=== PATIENT | male | born 1945 | race Caucasian/White ===

== ENCOUNTER 2018-09-17 10:37 | Inpatient (IN) ==
[2018-09-17] MEDS ORDERED: DILAUDID IV ONE (11:18)
[2018-09-17] MEDS ORDERED: ZOFRAN IV ONE (11:18)
[2018-09-17 11:43] LABS: URINE SOURCE CLEAN CATCH
[2018-09-17 11:51] LABS: BILIRUBIN URINE NEGATIVE (NEGATIVE); BLOOD URINE NEGATIVE (NEGATIVE); COLOR YELLOW; GLUCOSE URINE NEGATIVE (NEGATIVE); KETONE URINE NEGATIVE (NEGATIVE); LEUKOCYTES URINE NEGATIVE (NEGATIVE); NITRITE URINE NEGATIVE (NEGATIVE); PROTEIN URINE NEGATIVE (NEGATIVE); TURBIDITY URINE CLEAR (CLEAR); UROBILINOGEN URINE NORMAL (NORMAL)
[2018-09-17 11:53] LABS: UR EPITHELIAL CELLS <10 /HPF (<10); URINE BACTERIA NEGATIVE /HPF; URINE RBC <10 /HPF (<10); URINE WBC <10 /HPF (<10)
[2018-09-17 12:22] LABS: BASO# 0.01 X1000 (0.0-0.2); BASO% 0.1 % (0.0-0.8); EOS# 0.02 X1000 (0.0-0.7); EOS% 0.2 % (0.0-10.0); HEMOGLOBIN 13.3 g/dL (14.0-18.0); IMM GRAN# 0.04 X1000 (0.0-0.04); IMM GRAN% 0.3 % (0.0-0.5); LYMPH# 1.08 X1000 (1.2-3.4); LYMPH% 8.3 % (20.5-51.1); MCH 29.8 PG (27-31); MCHC 34.1 g/dL (33-37); MCV 87.4 FL (81-99); MONO% 4.6 % (1.7-9.3); MPV 9.7 FL (7.4-10.4); NEUT# 11.25 X1000 (1.4-6.5); NEUT% 86.5 % (42.2-75.2); PLT 225 X1000 (130-400); RBC 4.46 XMIL (4.7-6.1); RDW 14.9 % (11.5-14.5)
[2018-09-17 12:26] LABS: ALB/GLOB RATIO 1.4; ALBUMIN 4.2 g/dL (3.5-5.0); CALCIUM 9.1 mg/dL (8.8-10.2); POTASSIUM 3.3 mmol/L (3.5-5.1); TOTAL BILIRUBIN 0.62 mg/dL (0.20-1.00); TOTAL PROTEIN 7.3 g/dL (6.3-8.3)
--- NOTE | 2018-09-17 13:04 | Diag Imaging Result Doc PS360 ---
EXAM: CHEST-1 VIEW 09/17/2018 HISTORY: cp TECHNIQUE: AP portable upright at 1241 COMMENT: There is cardiomegaly. There is increased pulmonary vascularity. The inspiration is less optimal than on 05/21/2018. Considering degree of inspiration there has been no significant change since 05/21/2018. IMPRESSION: Cardiomegaly. Electronically signed by Sam Jones 09/17/2018 1:01 PM
--- NOTE | 2018-09-17 13:19 | Diag Imaging Result Doc PS360 ---
EXAM: CT ABDOMEN/PELVIS W/O CONTRAST 09/17/2018 HISTORY: possible hernia TECHNIQUE: This exam was performed using automated exposure control, adjustment of mA or kV according to patient size, and/or use of iterative reconstruction technique. COMMENT: There is platelike opacity in the lung bases and some increased interstitial opacity in the costophrenic sulci. There is fibrosis or atelectasis in the inferior lingula. No previous studies are available for comparison. 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 There is no evidence of hydronephrosis. There is no evidence of nephrolithiasis. There has been cholecystectomy. There is what appears to be a seroma in the gallbladder fossa. Multiple renal cysts are present. This includes a 5 cm size cyst in the lower pole on the right. It is also partially calcified posteriorly. There is a cyst posteriorly in the mid right kidney which also contains a rim of calcium. The spleen is not enlarged. The pancreas is grossly normal considering the lack of contrast. There has been appendectomy. There are bilateral fat-containing inguinal hernias particularly on the right. There is thickening of the mucosa and extraluminal gas associated with a segment of the sigmoid colon anteriorly. There is stranding in the surrounding fat. No discrete abscess is present. The prostate gland is not enlarged. There are some spondylotic changes in the lumbar spine. There is no evidence of acute bony abnormality. IMPRESSION: 1. Atelectasis versus fibrosis in the lung bases. 2. Sigmoid diverticulitis. The extent and severity of mucosal thickening in the sigmoid colon is more than what would ordinarily be expected, and the possibility of coexisting neoplastic disease should be considered. Electronically signed by Sam Jones 09/17/2018 1:17 PM
--- NOTE | 2018-09-17 14:32 | EKG Report ---
Test Performed on : 09/17/2018 12:19:38 PM Test Reason : ED. NO EKG ORDER FOR MUSE Blood Pressure : / mmHG Vent. Rate : 051 BPM Atrial Rate : 051 BPM P-R Int : 272 ms QRS Dur : 136 ms QT Int : 430 ms P-R-T Axes : 082 -57 121 degrees QTc Int : 396 ms Sinus bradycardia. with 1st degree AV block. Left axis deviation Left ventricular hypertrophy with QRS widening and repolarization abnormality Abnormal ECG When compared with ECG of 05-JUN-2017 09:58, DE interval has increased QRS duration has increased Nonspecific T wave abnormality no longer evident in Inferior leads T wave inversion less evident in Lateral leads Unconfirmed Result
[2018-09-17] MEDS ORDERED: DILAUDID IV PRN (14:40)
--- NOTE | 2018-09-17 14:54 | PROVIDER DOCUMENTATION ---
This chart was entered by Lorie Acosta Scribe, acting as scribe for Adam Medrano MD. HPI-Male Problem - General Chief Complaint: Abdominal Pain Stated Complaint: ABD PAIN Time Seen by Provider: 09/17/18 11:05 Source: patient Allergies/Adverse Reactions: Patient Allergies Allergy/AdvReac Type Severity Reaction Status Date / Time allopurinol Allergy RASH Verified 04/29/15 11:43 meperidine HCl * AdvReac Unknown Verified 04/29/15 11:35 [From Demerol] promethazine HCl * AdvReac Unknown Verified 04/29/15 11:35 [From Phenergan] Home Medications: Home Medication List Medication Instructions Recorded Confirmed Last Taken Type Amlodipine Besylate 10 mg PO QAM 04/29/15 06/06/17 06/05/17 History Aspirin 325 mg PO DAILY 04/29/15 06/06/17 05/31/17 History Carvedilol [Coreg] 25 mg PO BID 04/29/15 06/05/17 06/06/17 05:00 History Furosemide 80 mg PO QAM 04/29/15 06/06/17 06/05/17 History Metolazone 5 mg PO MOWEFR 04/29/15 06/06/17 06/05/17 History Minoxidil 10 mg PO BID 04/29/15 06/05/17 06/06/17 05:00 History Mometasone Nasal [place] [Nasonex 1 spray LEOLA DAILY 04/29/15 06/06/17 06/05/17 History Nasal [place]] [place]-3 Fatty Acids/Fish Oil [Fish 1 each PO QAM 04/29/15 06/05/17 06/06/17 05:00 History Oil 1,000 mg Softgel] Potassium Chloride E.r. [Klor-Con] 20 meq PO DAILY 04/29/15 06/05/17 06/06/17 05:00 History Atorvastatin Calcium [Lipitor] 20 mg PO DAILY 06/05/17 06/06/17 06/05/17 History Escitalopram [Lexapro] 10 mg PO DAILY 06/05/17 06/06/17 06/05/17 History Febuxostat [Uloric] 10 mg PO DAILY 06/05/17 06/05/17 06/06/17 05:00 History Iron,Carbonyl [Iron] 65 mg PO DAILY 06/05/17 06/06/17 06/05/17 History Vitamin B Complex Vit C No.4 150 mg PO DAILY 06/05/17 06/05/17 06/06/17 05:00 History [Super B Complex] Aspirin 325 mg PO BID #60 tablet 06/07/17 Unknown Rx Hydrocodone/APAP 10 mg/325 mg 1 each PO Q4H PRN PRN #40 tablet 06/07/17 Unknown Rx [[place]-10] - History of Present Illness-Male Nature of Presenting Problem: Patient is a 73 year old male who presents with right groin pain. States pain has been present for 2 days. Denies urinary symptoms. Location of Complaint: reports: groin (right) Radiation: reports: none Quality of Pain: reports: aching Severity in ED: reports: mild Onset/Duration: reports: 2 days ago Timing: reports: still present Context/Activities at Onset: reports: light activity Urinary Symptoms: reports: no symptoms Associated Symptoms: reports: denies symptoms Similar Symptoms Previously?: Yes Recently seen or treated by another doctor?: No Review of Systems - Adult - REVIEW OF SYSTEMS - ADULT Constitutional: reports: no symptoms reported. denies: chills, fever, fatique Eyes: reports: no symptoms reported Ears, Nose, Mouth & Throat: reports: no symptoms reported Cardiovascular: reports: no symptoms reported Respiratory: reports: no symptoms reported Gastrointestinal: reports: no symptoms reported. denies: abdominal pain, nause a, vomiting Genitourinary: reports: see HPI, other (right groin pain). denies: dysuria, hematuria Musculoskeletal: reports: no symptoms reported Integumentary: reports: no symptoms reported Neurological: reports: no symptoms reported Psychiatric: reports: no symptoms reported Endocrine: reports: no symptoms reported Hematologic/Lymphatic: reports: no symptoms reported Allergic/Immunologic: reports: no symptoms reported All Other Systems: Reviewed and Negative Past History - Adult - PAST MEDICAL HISTORY-ADULT Review of Records: reports: Old Records Reviewed, Nursing Assessment Review, Medications Reviewed, Social history reviewed & non-contributory. Major Childhood Illnesses: reports: denies history Cardiovascular: reports: HTN Respiratory: reports: denies history Gastrointestinal: reports: denies history Obstetrical/Gynecological: reports: denies history Genitourinary: reports: denies history Musculoskeletal: reports: denies history Neurological: reports: denies history Psychiatric: reports: depression Endocrine/Immune: reports: denies history Other Conditions: reports: denies history - PRIOR SURGERIES/PROCEDURES Surgical/Procedure History: reports: reviewed, not pertinent, cholecystectomy - IMMUNIZATION STATUS Childhood Immunizations: See Nurse Assessment Flu Vaccine: See Nurse Assessment - FAMILY HISTORY Family History: reviewed, not pertinent - SOCIAL HISTORY Smoking: cigarettes (former) Substance Use: denies Living Situation: family Physical Exam-General - PHYSICAL EXAM-ADULT Initial Vital Signs Reviewed: Yes - CONSTITUTIONAL General Appearance: alert, no apparent distress. negative: lethargic - HEAD, EARS, NOSE, MOUTH & THROAT HENMT: normocephalic/atraumatic, moist mucous membranes. negative: angioedema - RESPIRATORY Respiratory: chest non-tender, lungs clear, normal breath sounds. negative: crackles, stridor - CARDIOVASCULAR Cardiovascular: normal peripheral pulses, regular rate, rhythm. negative: tachycardia - GASTROINTESTINAL (ABDOMEN) Abdominal Exam: normal bowel sounds, soft, hernia (small right inguinal reducible hernia). negative: rigid - GENITOURINARY Male Genitalia: hernia mass (small right inguinal reducible hernia), inguinal tenderness (right). negative: testicular tenderness - MUSCULOSKELETAL Extremity: normal inspection. negative: deformity, erythema - SKIN Integumentary: normal color, normal turgor, warm/dry. negative: diaphoresis, ecchymosis - NEUROLOGIC Neurologic: grossly normal. negative: aphasia, facial droop - PSYCHIATRIC Psych/Mental Status: normal mood/affect, oriented x 3. negative: anxious Progress - PLAN OF CARE/RESULTS Progress/Plan/Lab Results: Vital Signs - 8 hr 09/17/18 10:52 Temperature 98.5 F Pulse Rate 49 L Respiratory Rate 18 Blood Pressure 121/61 O2 Sat by Pulse Oximetry 93 L Laboratory Results - last 24 hr 09/17/18 09/17/18 09/17/18 11:15 11:35 11:35 WBC 13.00 H RBC 4.46 L Hgb 13.3 L Hct 39.0 L MCV 87.4 MCH 29.8 MCHC 34.1 RDW Std Deviation 14.9 H Plt Count 225 MPV 9.7 Immature Gran % (Auto) 0.3 Neut % (Auto) 86.5 H Lymph % (Auto) 8.3 L [place] % (Auto) 4.6 Eos % (Auto) 0.2 Baso % (Auto) 0.1 Immature Gran # (Auto) 0.04 Neut # (Auto) 11.25 H Lymph # (Auto) 1.08 L [place] # (Auto) 0.60 H Eos # (Auto) 0.02 Baso # (Auto) 0.01 Sodium 140 Potassium 3.3 L Chloride 98 Carbon Dioxide 30 Anion Gap 12 BUN 42 H Creatinine 2.0 H Estimated GFR/1.73 m2 33 BUN/Creatinine Ratio 21 Glucose 115 H Calculated Osmolality 291 Calcium 9.1 Total Bilirubin 0.62 AST 16 ALT 18 Alkaline Phosphatase 67 Troponin T Iad-S-Ldafvrsefxn Pept Total Protein 7.3 Albumin 4.2 Globulin 3.1 Albumin/Globulin Ratio 1.4 Urine Source CLEAN CATCH Urine Color YELLOW Urine Turbidity CLEAR Urine pH 5.0 Ur Specific [place] 1.010 Urine Protein NEGATIVE Ur Glucose (Stick) NEGATIVE Ur Ketones (Stick) NEGATIVE Urine Blood NEGATIVE Urine Nitrite NEGATIVE Urine Bilirubin NEGATIVE Urobilinogen Dipstick NORMAL Urine Leukocytes NEGATIVE Urine WBC (Auto) <10 Urine RBC (Auto) <10 U Epithel Cells (Auto) <10 Urine Bacteria (Auto) NEGATIVE 09/17/18 09/17/18 11:35 11:35 WBC RBC Hgb Hct MCV MCH MCHC RDW Std Deviation Plt Count MPV Immature Gran % (Auto) Neut % (Auto) Lymph % (Auto) [place] % (Auto) Eos % (Auto) Baso % (Auto) Immature Gran # (Auto) Neut # (Auto) Lymph # (Auto) [place] # (Auto) Eos # (Auto) Baso # (Auto) Sodium Potassium Chloride Carbon Dioxide Anion Gap BUN Creatinine Estimated GFR/1.73 m2 BUN/Creatinine Ratio Glucose Calculated Osmolality Calcium Total Bilirubin AST ALT Alkaline Phosphatase Troponin T 0.062 Mqz-F-Pfkgcgnubsd Pept 1466 H Total Protein Albumin Globulin Albumin/Globulin Ratio Urine Source Urine Color Urine Turbidity Urine pH Ur Specific [place] Urine Protein Ur Glucose (Stick) Ur Ketones (Stick) Urine Blood Urine Nitrite Urine Bilirubin Urobilinogen Dipstick Urine Leukocytes Urine WBC (Auto) Urine RBC (Auto) U Epithel Cells (Auto) Urine Bacteria (Auto) Orders Category Date Time Status Admit - [facility] Routine AdmDCTranf 09/17/18 14:41 Active Activity - Up with Assistance ORDERED Care 09/17/18 14:41 Active Currently Rec Anticoagulation [QM] ROUTINE Care 09/17/18 14:41 Active Intake and Output-Strict ORDERED Care 09/17/18 14:41 Active Update & Confirm Home Medicati ROUTINE Care 09/17/18 14:44 Active Vital Signs Order Q 8-HR ASSESS Care 09/17/18 14:41 Active Z-Document. for Tele Applied ORDERED Care 09/17/18 14:43 Active NPO Diet 09/17/18 14:40 Active cardiac diet [Heart Healthy Diet] Diet 09/17/18 13:[address] ABDOMEN/PELVIS W/O CONTRAST [CT] Stat Exams 09/17/18 12:39 Completed cxr [CHEST-1 VIEW] [RAD] Stat Exams 09/17/18 12:20 Completed CBC WITH ELECTRONIC DIFF [HEME] Stat Lab 09/17/18 11:35 Completed CBC WITH NO DIFF [HEME] Routine Lab 09/18/18 06:00 Ordered CK PROFILE [SP CHEM] Routine Lab 09/18/18 06:00 Ordered COMPREHENSIVE METABOLIC PANEL [CHEM] Routine Lab 09/18/18 06:00 Ordered COMPREHENSIVE METABOLIC PANEL [CHEM] Stat Lab 09/17/18 11:35 Completed PRO B-NATRIURETIC PEPTIDE Stat Lab 09/17/18 11:35 Completed PROTIME WITH INR [COAG] Stat Lab 09/17/18 14:42 Ordered TROPONIN T Q6H Lab 09/17/18 20:00 Ordered TROPONIN T Q6H Lab 09/18/18 02:00 Ordered TROPONIN T Stat Lab 09/17/18 11:35 Completed TROPONIN T Stat Lab 09/17/18 14:25 Received URINALYSIS W/POSS RFLX CULT [URINALYSIS] Stat Lab 09/17/18 11:15 Completed 0.9% Sodium Chloride Inj [Ns] 1,000 ml Med 09/17/18 14:45 Active IV 75 mls/hr Ciprofloxacin 400 mg/D5w [Cipro 400 mg/D5w] Med 09/17/18 15:00 Active 400 mg in 200 ml IV ONCE Ciprofloxacin 400 mg/D5w [Cipro 400 mg/D5w] Med 09/17/18 14:45 Ordered 400 mg in 200 ml IV Q12H Hydromorphone [Dilaudid] Med 09/17/18 11:18 Discontinued 0.5 mg IV NOW ONE Hydromorphone [Dilaudid] Med 09/17/18 14:40 Active 0.5 mg IV Q3H PRN PRN Metronidazole 500 mg/Ns [Flagyl 500 mg/Ns] Med 09/17/18 14:45 Ordered 500 mg in 100 ml IV Q6H Ondansetron [Zofran] Med 09/17/18 11:18 Discontinued 4 mg IV NOW ONE Ondansetron [Zofran] Med 09/17/18 14:41 Active 4 mg IV Q4H PRN PRN Telemetry [OM.EQ] Routine Oth 09/17/18 14:41 Active EKG [EKG] Stat Ther 09/17/18 12:19 Draft Echo Spec/Color Doppler Routine Ther 09/17/18 14:41 Ordered 1216 - Patient's RN states patient is now complaining of chest pain and nausea. Result Diagrams: 09/17/18 11:35 09/17/18 11:35 - EKG 1 Time of EKG reading by physician:: 12:19 EKG Read and Signed by:: Adam Medrano EKG Interpretation (*Must complete 3 of following elements*): Abnormal Rate: 51 Rhythm: sinus bradycardia with 1st degree AV block [place]: left QRS: LVH (with QRS widening and repolarization abnormality.) Comments: abnormal ECG - XRAY 1 XRAY Study: Chest Impression: See EMR Report (EXAM: CHEST-1 VIEW 09/17/2018 HISTORY: cp TECHNIQUE: AP portable upright at 1241 COMMENT: There is cardiomegaly. There is increased pulmonary vascularity. The inspiration is less optimal than on 05/21/2018. Considering degree of inspiration there has been no significant change since 05/21/2018. IMPRESSION: Cardiomegaly. Electronically signed by Sam Jones 09/17/2018 1:01 PM 09/17/18 1301 Interpreting Physician: Sam Jones MD Dictated Date/Time: 09/17/18 1301 cc: Darcie Medrano MD; Hiram Moya MD) - CT/MRI 1 CT Study: Abdomen, Pelvis Impression: See EMR Report (Signed EXAM: CT ABDOMEN/PELVIS W/O CONTRAST 09/17/2018 HISTORY: possible hernia TECHNIQUE: This exam was performed using automated exposure control, adjustment of mA or kV according to patient size, and/or use of iterative reconstruction technique. COMMENT: There is platelike opacity in the lung bases and some increased interstitial opacity in the costophrenic sulci. There is fibrosis or atelectasis in the inferior lingula. No previous studies are available for comparison. 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 There is no evidence of hydronephrosis. There is no evidence of nephrolithiasis. There has been cholecystectomy. There is what appears to be a seroma in the gallbladder fossa. Multiple renal cysts are present. This includes a 5 cm size cyst in the lower pole on the right. It is also partially calcified posteriorly. There is a cyst posteriorly in the mid right kidney which also contains a rim of calcium. The spleen is not enlarged. The pancreas is grossly normal considering the lack of contrast. There has been appendectomy. There are bilateral fat-containing inguinal hernias particularly on the right. There is thickening of the mucosa and extraluminal gas associated with a segment of the sigmoid colon anteriorly. There is stranding in the surrounding fat. No discrete abscess is present. The prostate gland is not enlarged. There are some spondylotic changes in the lumbar spine. There is no evidence of acute bony abnormality. IMPRESSION: 1. Atelectasis versus fibrosis in the lung bases. 2. Sigmoid diverticulitis. The extent and severity of mucosal thickening in the sigmoid colon is more than what would ordinarily be expected, and the possibility of coexisting neoplastic disease should be considered. Electronically signed by Sam Jones 09/17/2018 1:17 PM 09/17/18 1317 Interpreting Physician: Sam Jones MD Dictated Date/Time: 09/17/18 1310 cc: Adam Medrano MD; Hiram Moya MD) - CONSULTS/PCP/HOSPITALIST Notification #1 *Consult/PCP/Hospitalist*: ROSA Banks for Hospitalist Time Discussed: 14:02 (Dr. Barajas accepted admit ) Reason/Comments: Dr. Medrano consulted with Jocelyn about patient Consult Disposition: Will see in ED, Admit Departure - Departure Date of Disposition Decision: 09/17/18 Time of Disposition Decision: 14:06 DIAGNOSIS: Chest pain, Diverticulitis, Hernia, Renal insufficiency, CHF (congestive heart failure) Disposition: ADMITTED INPATIENT 09 Certified Medical Emergency: Emergent Condition: Fair Referrals and Follow-Ups: Hiram Moya MD [Primary Care Provider] - - Critical Care Note This patient required my direct & personal management of CC.: No Attestation - Physician/ FELISA Attestation Patient care was provided by Advanced Practice Provider:: No The physician spent face to face time with patient:: Yes Advanced Practice Provider documentation review:: Supervising physician onsite and consulted in the evaluation and care of this patient. The physician did have a face to face encounter with the patient. This chart was documented by the indicated scribe, (Lorie Acosta Scribe) and accurately reflects the services I performed and decisions made by me, Adam Medrano MD, as attested by the provider's signature.
[2018-09-17] MEDS ORDERED: CIPRO 400 MG/D5W 400 MG/200 ML IVPB IV ONE (15:00)
[2018-09-17 15:15] LABS: INR 1.59; PROTIME 19.3 Seconds (11.0-16.0)
--- NOTE | 2018-09-17 18:02 | HISTORY AND PHYSICAL ---
CHIEF COMPLAINT: Low abdominal pain. HISTORY OF PRESENT ILLNESS: This is a 73-year-old gentleman who presented to the emergency room complaining of an aching type pain to bilateral lower quadrants into his groin. He states that he was snider hogging Monday and his pain started while riding the tractor. When he got off of the tractor he stated that the pain was intense, although it did ease up shortly after, but he states it never resolved. CT of the abdomen and pelvis revealed sigmoid diverticulitis as well as bilateral fat containing inguinal hernias, particularly on the right. Mr. Vega had been in the emergency room for about an hour and he complained of a right sided chest pain that he described as a squeezing type sensation just behind his right breast. He stated he became nauseated and he vomited and the pain resolved. Shortly after he felt nauseated again, the pain recurred, although it spontaneously resolved. He states he does have a history of gastroesophageal reflux disease. PAST MEDICAL HISTORY: 1. Coronary artery disease, having a heart attack in the 1980s. 2. Aortic valve replacement, on chronic anticoagulation. 3. History of DVT in his leg. 4. Hypertension. PAST SURGICAL HISTORY: Arthroscope of his knee, aortic valve replacement. SOCIAL HISTORY: He denies alcohol, tobacco, or illicit drug use. ALLERGIES: Allopurinol, Demerol, and Phenergan. HOME MEDICATIONS: Will be obtained by the nursing staff and once verified we will review and restarted as is appropriate. REVIEW OF SYSTEMS: Discussed with patient with pertinent positives stated in the HPI. He denied any syncope or dizziness, any palpitations, any shortness of breath, cough, fever, chills, night sweats, PND, orthopnea, any black or bloody vomitus or stools, any diarrhea, constipation, any hematuria, dysuria, frequency, urgency. PHYSICAL EXAMINATION: GENERAL: This is a 73-year-old gentleman who is sitting up in the bed in the ER emergency room in no distress. VITAL SIGNS: Blood pressure is 126/60 with a heart rate of 64, respirations are 18, temperature is 98.6 degrees, with room air saturations 93 to 98%. EYES: Pupils are equal, round, react to light. EOMs are intact. Sclerae are anicteric. HENT: Head is normocephalic, atraumatic. Mucous membranes are moist. NECK: Supple with trachea midline. He has no JVD. CARDIOVASCULAR: Regular rate and rhythm. S1 and S2 appreciated. He has no lower extremity edema. Calves are nontender bilateral with peripheral pulses palpable x4 extremities. PULMONARY: Breath sounds are clear with no increased work of breathing noted. GASTROINTESTINAL: Abdomen is soft, nontender, nondistended, with bowel sounds in all 4 quadrants. GENITOURINARY: He has no CVA nor suprapubic tenderness. He does have a small right inguinal hernia that is reducible. MUSCULOSKELETAL: Good range of motion to joints. SKIN: Warm and dry. NEUROLOGIC: He is alert and oriented x3. LABS: WBC is 13, with hemoglobin 13, hematocrit 39, and platelets of 225,000. Sodium 140, potassium 3.3, BUN 42, creatinine 2, with a glucose of 115. Troponin, first troponin is 0.062, second 0.042. Urinalysis is essentially negative. Chest x-ray revealed cardiomegaly. CT scan of the abdomen and pelvis without contrast revealed atelectasis versus fibrosis in the lung bases. Sigmoid diverticulitis with the extent and severity of mucosal thickening in the sigmoid colon is more than what would ordinarily be expected. The possibility of coexisting neoplastic disease should be considered. ASSESSMENT AND PLAN: 1. Sigmoid diverticulitis. n.p.o. at present. continue with IV hydration, antibiotic coverage of Cipro and Flagyl. 2. Possibility of coexisting neoplastic disease per CT scan read. follow up with GI on an outpatient basis once diverticulitis has been treated and resolved. 3. Bilateral inguinal hernias. These are fat containing. The right being reducible, although it does not stay. urology follow up on an outpatient basis. 4. Leukocytosis, very likely secondary to #1. trend his labs and continue antibiotics. 5. Acute kidney injury overlying chronic kidney disease. renal dose medications as appropriate, hold renal toxic medications that are not needed, and continue with IV hydration, and trend his labs daily. 6. History of coronary artery disease, aware. continue home medications as appropriate. 7. Aortic valve replacement, on chronic anticoagulation. obtain an echocardiogram as he has had chest pain. 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 trend his troponins . telemetry. Plan discussed with Dr Barajas. Further treatments pending hospital course. Dictated by ROSA Perez for Estuardo Barajas MD cc: ROSA Perez MD [facility]
--- NOTE | 2018-09-17 18:41 | HISTORY AND PHYSICAL ---
ADDENDUM: SUBJECTIVE: The patient has no major complaints. OBJECTIVE: Blood pressure is 127/56, heart rate 61, respiratory 18. Patient does have some tenderness in his lower quadrants. He was concerned about a hernia. He was seen by Dr. Moya and referred for CT which showed sigmoid diverticulitis and he was admitted for treatment. He developed right-sided chest pain and was admitted for that. We will treat his diverticulitis with antibiotics. We will do some serial enzymes. He does have extensive cardiac history including an aortic valve replacement but his pain is quite atypical. He sees Dr. Arnold. As far as I can tell not sure any recent cardiac studies but I do not know if he has had anything done in [place] and get Cardiology opinion just to see if there is any other workup we need to do while he is here although is fairly limited since I really do not want to put him through any significant testing until his diverticulitis is resolved so we will follow. Appreciate input. As soon as his pain is improved anticipate discharge. This is a [id number] encounter note with Debi Bryson. cc: Estuardo Barajas MD
[2018-09-17] MEDS: FLAGYL 500 MG/NS 500 MG/100 ML IVPB IV SCH ×2 (18:44→23:16)
[2018-09-17] MEDS: NS 1,000 ML IV SCH (19:13)
[2018-09-18] MEDS: ZOFRAN IV PRN ×2 (03:09→18:56)
[2018-09-18] MEDS: FLAGYL 500 MG/NS 500 MG/100 ML IVPB IV SCH ×3 (04:23→16:49)
[2018-09-18] MEDS: CIPRO 400 MG/D5W 400 MG/200 ML IVPB IV SCH ×2 (06:18→18:23)
[2018-09-18 07:18] LABS: HEMATOCRIT 34.7 % (42.0-52.0); HEMOGLOBIN 11.4 g/dL (14.0-18.0); MCH 29.5 PG (27-31); MCHC 32.9 g/dL (33-37); MCV 89.9 FL (81-99); MPV 10.2 FL (7.4-10.4); RBC 3.86 XMIL (4.7-6.1); RDW 14.6 % (11.5-14.5); WBC 11.95 X1000 (4.8-10.8)
[2018-09-18 07:57] LABS: ALB/GLOB RATIO 1.2; ALBUMIN 3.5 g/dL (3.5-5.0); CALCIUM 8.4 mg/dL (8.8-10.2); CREATININE 1.7 mg/dL (0.7-1.2); POTASSIUM 3.1 mmol/L (3.5-5.1); TOTAL BILIRUBIN 0.81 mg/dL (0.20-1.00); TOTAL PROTEIN 6.4 g/dL (6.3-8.3)
[2018-09-18] MEDS: NS 1,000 ML IV SCH ×2 (07:59→13:20)
--- NOTE | 2018-09-18 10:16 | CONSULTATION ---
DATE OF CONSULTATION: 09/18/2018 IMPRESSION: 1. Brief episode of atypical chest pain. ECG benign and serial troponins normal. Suspect more likely noncardiac. 2. Atherosclerotic coronary artery disease. Patient is status post coronary artery bypass surgery with saphenous vein graft to left anterior descending coronary. At the same time, he had aortic valve replacement with bioprosthesis in 2009. Last coronary angiography in July 2014 demonstrated occluded left anterior descending coronary and patent left internal mammary artery graft to the left anterior descending coronary artery. Severe pulmonary hypertension and elevated left ventricular filling pressures demonstrated. 3. Aortic valve disorder. The patient is status post previous aortic valve replacement with bioprosthesis at the time of his coronary artery bypass surgery in 2009 for management of aortic stenosis. 4. Hypertension. 5. Hyperlipidemia. 6. Chronic kidney disease stage 3. 7. Inguinal hernia with recent bilateral pain in the inguinal region. 8. Diverticular disease of the colon with possible diverticulitis. RECOMMENDATIONS: 1. Continue current medical management for the patient's coronary artery disease. 2. Patient is clinically stable from a cardiology standpoint to go home and follow up with his regular call center associate, Dr. Arnold, in [place]. I will see further on an inpatient basis as needed. HISTORY: This 73-year-old, white male with past history of previous aortic valve replacement with bioprosthesis along with single-vessel coronary artery bypass grafting with saphenous vein graft to left anterior descending coronary in 2009 was admitted through the emergency room after he presented with bilateral lower abdominal pain. While in the emergency room, he had some transient chest discomfort and for this reason, cardiology was consulted. He relates a few days of bilateral lower abdominal/inguinal discomfort. Symptoms started a couple days ago and seemed to start while he was riding his tractor. Discomfort never really fully resolved. He denies any diarrhea and he is not aware of any fevers. He came to the emergency room for evaluation. While in the emergency room, he had some transient right-sided chest discomfort of perhaps a few minutes' duration with associated nausea. Discomfort was centered in his right anterior chest. Symptoms have resolved. Symptoms are not like what he has experienced with his previous heart disease in the past. He is generally fairly active without any exertional chest discomfort. PAST MEDICAL HISTORY: 1. Aortic valve disorder with previous aortic valve bioprosthesis in 2009 coupled with coronary artery bypass surgery for management of severe aortic stenosis. 2. Atherosclerotic coronary disease. Patient had coronary artery bypass grafting with saphenous vein graft to left anterior descending coronary in 2009, along with aortic valve replacement. Last coronary angiography in 2014 demonstrated bypass graft to be patent and single-vessel coronary artery disease with occluded left anterior descending coronary. 3. Paroxysmal atrial fibrillation. 4. Pulmonary hypertension. 5. Hypertension. 6. Hyperlipidemia. 7. Chronic kidney disease stage 3. 8. Mild atherosclerotic carotid disease. 9. Inguinal hernia. 10. Diverticular disease of the colon. 11. History of previous deep vein thrombosis. ALLERGIES: He is allergic or intolerant to allopurinol, Demerol, and Phenergan. MEDICATIONS PRIOR TO ADMISSION: As listed. 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 He has not smoked cigarettes in more than 20 years. He does not use alcohol. FAMILY HISTORY: Negative for premature coronary disease. REVIEW OF SYSTEMS: Pulmonary: Negative. Gastrointestinal: Noteworthy for bilateral abdominal discomfort. There has been no diarrhea or melena. There has been no bright red blood per rectum. Constitutional Review of Systems: The patient is unaware of fever. Remainder of review of systems negative/noncontributory with 14 total systems reviewed. PHYSICAL EXAMINATION: General: This is a pleasant, older white male in no distress. Vital Signs: Blood pressure 120/54, heart rate 53 and regular, oxygen saturation 95% on nasal cannula oxygen at 2 L per minute. HEENT Examination: Extraocular movements appear intact. Mucous membranes are moist. Neck: Supple without jugular venous distention. There are no carotid bruits. Chest: Auscultation of the chest reveals clear chest bilaterally. Cardiac Examination: Reveals a regular rate and rhythm with a grade 2/6 systolic murmur at the right upper sternal border. No gallop could be appreciated. Abdomen: Soft. Bowel sounds were normal. Extremities: Without edema. Neurologic: Examination reveals him to be alert and fully oriented. Speech is fluent. He moves all 4 extremities equally well. Skin: Warm and dry. Psychiatric: Examination reveals mood to be appropriate. DIAGNOSTIC DATA: A 12 lead EKG demonstrates sinus bradycardia, left anterior fascicular block, and probable left ventricular hypertrophy with repolarization abnormality. LABORATORY DATA: Includes white blood cell count of 11.95, hematocrit 34.7, hemoglobin 11.4, platelet count 194,000. Sodium 140, potassium 3.1, chloride 99, carbon dioxide 30, BUN 40, creatinine 1.7. Initial troponin 0.37 with followup troponins of 0.42 and 0.62. cc: Yannick Garcia MD
[2018-09-18] MEDS ORDERED: NORCO-10 PO PRN (10:23)
[2018-09-18] MEDS ORDERED: LASIX PO SCH (10:30)
--- NOTE | 2018-09-18 16:52 | ECHO REPORT ---
ORDER DATE: 09/17/2018 ECHOCARDIOGRAPHIC MEASUREMENTS: 1. Interventricular septum 1.3. 2. Left ventricular posterior wall 1.3. 3. Diastolic diameter 5.6. 4. Aorta 4. 5. Left atrium 4.9. SUMMARY: 1. Bioprosthetic valve in the aortic position was stable. 2. Pulmonic valve was normal. 3. There is trace pulmonary regurgitation. 4. Mitral valve was normal. 5. Tricuspid valve was normal. 6. There is left atrial enlargement. 7. There is mild mitral regurgitation. 8. Mild tricuspid regurgitation. 9. Peak velocity across the tricuspid valve was 3.2 m/sec. 10. Pulmonary artery systolic pressure of 52 mmHg. 11. Peak velocity across the aortic valve was 4 m/sec with mean gradient of 35 mmHg, maximum gradient of 63 mmHg. 12. Aortic valve area by VTI was 1.3 square cm. This is in keeping with bioprosthetic aortic valve. 13. There is no aortic regurgitation however there is an increase in the mean gradient. Would recommend comparison with previous echocardiogram reports. 14. Normal left ventricular cavity size. 15. Concentric left ventricular hypertrophy. 16. Estimated ejection fraction of 65%. 17. There is diastolic dysfunction. 18. There is no pericardial effusion. cc: MD Debi Doan CRNP
[2018-09-18 17:01] VITALS: BP 118/49
[2018-09-18] MEDS ORDERED: CIPRO PO ONE (17:59)
[2018-09-18] MEDS ORDERED: COREG PO SCH (21:00)
[2018-09-18] MEDS ORDERED: LONITEN PO SCH (21:00)
[2018-09-18] MEDS ORDERED: KLOR-CON PO SCH (21:00)
[2018-09-18] MEDS ORDERED: LIPITOR PO SCH (21:00)
--- NOTE | 2018-09-19 | DISCHARGE SUMMARY ---
ADMISSION DATE: 09/17/2018 DISCHARGE DATE: 09/18/2018 DISCHARGE DIAGNOSES: 1. Diverticulitis. 2. Atypical chest pain. Discharge diagnosis: 1. Diverticulitis. 2. Atypical chest pain/CAD. CONSULTATIONS: Dr. Garcia, cardiology. Briefly this is a 73-year-old male with history of CAD who presents with sigmoid diverticulitis. He is a Dr. Moya patient. He was sent to the ER. He is very focused on his hernias. He felt that was a major issue for him but they are fat containing hernias and we will continue to follow. Acute on chronic kidney disease and he is on anticoagulation. I do not think he has a mechanical valve looks like it is bioprosthetic but any case he was placed on Cipro and Flagyl. He improved somewhat, was still having pain the next day, he was tolerating clears without difficulty. Dr. 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 Arnold in [place]. He is hypokalemic but he seems to be doing okay. In any case he was very adamant about going home. Cardiology had released him from their standpoint. I think he could have probably benefited from 1 more day of IV antibiotics but he was very adamant about going home because he just did sleep well. He was tolerating p.o. His white count had improved from 13 to 11 and felt stable with discharge. Gave him a lot of data on low residue diet and I do think he needs followup with Dr. Fisher in [address] was unclear if this was possibly neoplastic as well, although clinically pain and white count which is more consistent with diverticulitis. DISCHARGE MEDICATIONS: Amlodipine 10, aspirin 81 daily, Coreg 25 b.i.d., fish oil 1 daily, Lasix 40 daily, Icar-C 65 daily, Klor-Con 20 b.i.d., Lexapro 10 daily, Lipitor 20 daily, metolazone 5 Monday, Monday, Monday, minoxidil 10 b.i.d., Nasonex, [place], vitamin B daily, Uloric 80 daily, Cipro 500 q.12 for 10 days, Flagyl 500 t.i.d. for 10 days, [place] 7.5 q.6 p.r.n. pain and Zofran 4 mg p.r.n. nausea. Otherwise negative times a 10 point review of systems. cc: Estuardo Barajas MD MTDD
[2018-09-19] MEDS ORDERED: NASONEX NASAL SPRAY NAS SCH (09:00)
[2018-09-19] MEDS ORDERED: LASIX PO SCH (09:00)
[2018-09-19] MEDS ORDERED: ZAROXOLYN PO SCH (09:00)
[2018-09-19] MEDS ORDERED: LEXAPRO PO SCH (09:00)
[2018-09-19] MEDS ORDERED: ASPIRIN PO SCH (09:00)
[2018-09-19] MEDS ORDERED: ULORIC PO SCH (09:00)
[2018-09-19] MEDS ORDERED: FISH OIL CONCENTRATE PO SCH (09:00)
[2018-09-19] MEDS ORDERED: NORVASC PO SCH (09:00)
[2018-09-19] MEDS ORDERED: ICAR-C PO SCH (09:00)
[2018-09-19] MEDS ORDERED: VICON-C PO SCH (09:00)
== END 2018-09-18 18:58 | disposition home or self-care (01) | DRG 392 ==
LOC: ED 10:37 → 4N 16:13
PROVIDERS: ATTEND Internal Medicine